=== PATIENT | female | born 2000 | race Caucasian/White ===

== ENCOUNTER 2021-10-28 16:09 | Emergency (ER) | payer BC, SELFPAY ==
[2021-10-28 16:15] VITALS: BP 110/70; PULSE 92; RESP 18; TEMP 36.8; O2SAT 98; BMI 32.8
[2021-10-28] MEDS: dexAMETHasone 4 MG/ML VIAL 10 MG IV (17:20)
[2021-10-28 17:25] VITALS: BP 148/85; PULSE 75; O2SAT 99
--- NOTE | 2021-10-28 17:38 | ED_ITS ---
HPI - Allergic Reaction General Chief complaint: Allergic Reaction Stated complaint: Hives,Trouble Breathing Time Seen by Provider: 10/28/21 16:16 History of Present Illness HPI narrative: This patient comes in with some generalized hives that are pruritic. This has risen today and the patient is not aware of any particular exposures to trigger these symptoms. She has some maculopapular rash typical of hives in the inner thighs and around her trunk and upper extremities. She also feels that her lower lip is a bit swollen. She does not have a prior history of anaphylaxis. Related Data Home Medications Medication Instructions Recorded Confirmed desogestrel 0.15 mg-ethinyl tab 10/28/21 estradiol 0.03 mg tablet (Isibloom) escitalopram oxalate 20 mg tablet mg 10/28/21 Allergies Allergy/AdvReac Type Severity Reaction Status Date / Time Penicillins Allergy Verified 10/28/21 16:15 sulfamethoxazole Allergy Verified 10/28/21 16:15 [From Bactrim] trimethoprim [From Bactrim] Allergy Verified 10/28/21 16:15 Review of Systems Status of ROS Reports: 10 or more systems reviewed and unremarkable except as noted in History and below Narrative Constitutional: No fevers, no weight gain or loss. Eyes: No discharge. No vision changes. HENT: No congestion, no sore throat, no ear pain. Cardiovascular: No chest pain, no palpitations. Respiratory: No shortness of breath, no wheezes, no cough. Gastrointestinal: No abdominal pain, no vomiting, no diarrhea. Genitourinary: No dysuria, no hematuria. Musculoskeletal: Normal range of motion. Skin: Pruritic rash on the trunk and extremities. Neurological: No dizziness, weakness, sensory change, speech change. Endo/Heme/Allergies: No bruising or bleeding. No polydipsia. Pysch: no suicidality, no anxiety, no insomnia. All other systems reviewed and are negative. 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 HEENT: Normocephalic, atraumatic. No airway compromise. Neck: Normal range of motion. Nontender. Supple. Heart: Regular. No murmurs. Normal rate. Intact distal pulses. Lungs: Clear to auscultation. No chest discomfort. No wheezes, rhonchi, or rales. Abdomen: Normal bowel sounds. Nontender. No rebound tenderness. Genitalia: Deferred. Back: No midline tenderness. Normal range of motion. Extremities: Normal range of motion. No injury. Skin: Intact. Pruritic maculopapular rash in the inner thighs bilaterally and upper extremities as well as the trunk. Neurologic: No altered sensation. No weakness. Alert and oriented. Psychiatric: No suicidality. No anxiety or depression. No insomnia. Nursing notes and vitals signs are reviewed. Const: Vital Signs, click to edit/add: Vital Signs - 24 hr 10/28/21 16:15 Temperature 98.3 F Pulse Rate [Right Pulse Oximeter] 92 Respiratory Rate 18 Blood Pressure [Ri ght Upper Arm] 110/70 Pulse Oximetry 98 Course Vital Signs Vital signs: Initial Vital Signs Temperature 98.3 F 10/28/21 16:15 Temperature Source Temporal Artery Scan 10/28/21 16:15 Pulse Rate 92 10/28/21 16:15 Respiratory Rate 18 10/28/21 16:15 Blood Pressure 110/70 10/28/21 16:15 Blood Pressure Mean 83 10/28/21 16:15 Blood Pressure Position Sitting 10/28/21 16:15 Pulse Oximetry 98 10/28/21 16:15 Oxygen Delivery Method 10/28/21 16:15 Vital Signs Temperature 98.3 F 10/28/21 16:15 Pulse Rate 92 10/28/21 16:15 Respiratory Rate 18 10/28/21 16:15 Blood Pressure 110/70 10/28/21 16:15 Pulse Oximetry 98 10/28/21 16:15 Temperature 98.3 F 10/28/21 16:15 Pulse Rate 92 10/28/21 16:15 Respiratory Rate 18 10/28/21 16:15 Blood Pressure 110/70 10/28/21 16:15 Pulse Oximetry 98 10/28/21 16:15 MDM - Allergic Reaction MDM Narrative Medical decision making narrative: This patient has an allergic reaction to some unknown allergen. She is not showing any signs of anaphylaxis or angioedema. She did receive an oral dose of dexamethasone 10 mg. I advised her to use antihistamine such as Kalyn, Zyrtec, or Claritin for additional relief. Discharge Plan Discharge Clinical Impression: Urticaria, Allergic reaction Patient Disposition: Home, Self-Care Condition: Stable Instructions: Urticaria (ED), Acute Rash (ED) Additional Instructions: Use [id number] antihistamines such as Kalyn, Claritin, or Zyrtec as needed and directed. Follow up with MD or return if worsening. Prescriptions: No Action desogestrel-ethinyl estradiol [Isibloom] 0.15-0.03 mg tablet 0RF Label Comments: TAKE 1 TABLET BY MOUTH EVERY DAY escitalopram oxalate 20 mg tablet 0RF Follow Up/Referrals: Maribell Adame MD [Primary Care Provider] - Stand Alone Forms: [employer] Info Instructions
[2021-10-28 17:40] VITALS: BP 145/86; PULSE 69; O2SAT 98
[2021-10-28 18:00] VITALS: BP 157/82; PULSE 67; O2SAT 99
== END 2021-10-28 18:12 | disposition home or self-care (01) ==
PROVIDERS: Emergency Provider Emergency Medicine Emergency Medical Services; PCP Family Medicine
DX: L50.9 Urticaria, unspecified (principal)
CPT/HCPCS: 99282; 99283; J1100